=== PATIENT | female | born 1980 | race American Indian/Alaskan Native ===

== ENCOUNTER 2017-12-03 06:56 | Emergency (ER) | payer BC, OTHER ==
--- NOTE | 2017-12-03 07:06 | Emergency Department Report ---
ED Neuro Deficit HPI - General Stated Complaint: POSSIBLE STROKE Time Seen by Provider: 12/03/17 06:59 Source: patient, EMS, RN notes reviewed, old records reviewed (no previous record) Mode of arrival: Stretcher Limitations: Physical Limitation - History of Present Illness Initial Comments: 37 year old female with a past medical history hypertension presents to the hospital with stroke symptoms. Patient woke up at 6 AM with weakness. She tried to ambulate to the bathroom and fell. She has left-sided facial droop, left arm, and left leg paralysis. She complains of right-sided headache. Patient is slightly lethargic but able to follow commands and answer questions. She presents significantly hypertensive. Patient has had hypertension for several years but has been noncompliant with medications. In preparation for dental abscess surgery she was placed on lisinopril me 5 days ago with last dose last night. - Related Data Allergies/Adverse Reactions: Allergies Allergy/AdvReac Type Severity Reaction Status Date / Time No Known Allergies Allergy Verified 12/03/17 07:16 ED Review of Systems ROS: Stated complaint: POSSIBLE STROKE Other details as noted in HPI Comment: Unobtainable due to pts medical conditions (limited due to decreased MS) Other: Constitutional: No fevers chills Neck: Denies pain Respiratory: Denies cough wheezing shortness of breath Cardiovascular: Denies chest pain GI: Denies abdominal pain, nausea, vomiting : Denies dysuria Musculoskeletal: Denies back pain Skin: Denies rash Neurologic: As per HPI ED Neuro Physical Exam - General Suspected Stroke: Yes - NIHSS Assessment Interval: Baseline 1a. Level of Consciousness: not alert, arousable 1b. LOC Questions: answers correctly 1c. LOC Commands: performs tasks correctly 2. Best Gaze: normal 3. Visual: no visual loss 4. Facial Palsy: complete paralysis (left) 5b. Motor Arm Right: no drift 5a. Motor Arm Left: no movement 6a. Motor Leg Left: no movement 6b. Motor Leg Right: no drift 7. Limb Ataxia: absent 8. Sensory: normal 9. Best Language: no aphasia 10. Dysarthria: normal 11. Extinction/Inattention: no abnormality Total Score: 12 Stroke Severity: Moderate Stroke - Other Other exam information: General: lethargic Head exam: Atraumatic, normocephalic Eyes exam: Normal appearance, pupils equal reactive to light, extraocular movements intact ENT: Moist mucous membrane, normal oropharynx Neck exam: Normal inspection, full range of motion, no meningismus nontender Respiratory exam: Clear to auscultation bilateral, no wheezes, rales, crackles Cardiovascular: Normal rate and rhythm, normal heart sounds Abdomen: Soft, nondistended, and nontender, with normal bowel sounds, no rebound, or guarding Extremity: Full range of motion normal inspection no deformity Back: Normal Inspection, full range of motion, no tenderness Neurologic: lethargic oriented x3,. see NIHSS. GCS E3, V5, M6 = 14 Psychiatric: normal affect, normal mood Skin: Warm, dry, intact ED Course Vital Signs 12/03/17 12/03/17 12/03/17 07:02 07:14 07:15 Temperature 97.6 F Pulse Rate 71 71 75 Respiratory 22 19 Rate Blood Pressure 203/129 Blood Pressure 203/129 [Left] O2 Sat by Pulse 99 100 100 Oximetry 12/03/17 12/03/17 12/03/17 07:30 07:45 08:00 Temperature Pulse Rate 76 114 H 112 H Respiratory 20 22 19 Rate Blood Pressure 234/143 198/125 213/146 Blood Pressure [Left] O2 Sat by Pulse 100 100 100 Oximetry 12/03/17 12/03/17 12/03/17 08:05 08:11 08:15 Temperature Pulse Rate 109 H 120 H 145 H Respiratory 22 23 28 H Rate Blood Pressure 204/141 204/141 204/141 Blood Pressure [Left] O2 Sat by Pulse 100 99 99 Oximetry 12/03/17 12/03/17 12/03/17 08:20 08:25 08:30 Temperature Pulse Rate 156 H 137 H 140 H Respiratory 22 23 24 Rate Blood Pressure 211/158 211/158 212/130 Blood Pressure [Left] O2 Sat by Pulse 97 99 96 Oximetry 12/03/17 08:35 Temperature Pulse Rate 141 H Respiratory 26 H Rate Blood Pressure 186/121 Blood Pressure [Left] O2 Sat by Pulse 97 Oximetry - Reevaluation(s) Reevaluation #1: 12/03/17 07:[address] and after review his CT results patient was prepped for intubation for airway stabilization. Patient was informed of her CAT scan results and need for intubation. Patient's boyfriend was present in the ED and was brought to the bedside to speak to the patient prior to intubation. - Consultations Consultation #1: 12/03/17 07:12 Case discussed with telemetry neurologist Dr. Laureano. Patient over in CAT scan now. Consultation #2: 12/03/17 07:48 Call Placed to [place] transfer service. Awaiting neurosurgeon and hopper filler call back 12/03/17 07:57 case d/w Neurosurgeon Dr Gonzalez and hopper filler Dr Arredondo pt accepted. Rec keppra 1 g, manitol 1g/kg load, agree with goal sbp of 150 - Intubation Time Out Performed: Yes Sedative: Etomidate Mg Given: 20 Paralytic: Rocuronium Mg Given: 100 Laryngoscope: Yaima Size: 3 ET Tube Size: 7.5 Other Airway Intervention: pretreament with lidocaine 100mg prior to intubation Tube Secured Depth (cm): 22 Tube Secured Location: lips Tube Placement Confirmation: visualized tube passing t, equal breath sounds bilat, no breath sounds over epi, confirmation by capnometr Patient Tolerated Procedure: well Intubation Complications: none - Lab Data Result diagrams: 12/03/17 07:00 12/03/17 07:00 Lab Results 12/03/17 12/03/17 12/03/17 Range/Units 07:00 07:00 07:00 WBC 6.1 (4.5-11.0) K/mm3 RBC 5.11 H (3.65-5.03) M/mm3 Hgb 15.0 H (10.1-14.3) gm/dl Hct 43.8 H (30.3-42.9) % MCV 86 (79-97) fl MCH 29 (28-32) pg MCHC 34 (30-34) % RDW 12.8 L (13.2-15.2) % Plt Count 210 (140-440) K/mm3 Lymph % (Auto) 44.9 H (13.4-35.0) % Canyon % (Auto) 8.3 H (0.0-7.3) % Eos % (Auto) 3.2 (0.0-4.3) % Baso % (Auto) 0.7 (0.0-1.8) % Lymph # 2.7 (1.2-5.4) K/mm3 Canyon # 0.5 (0.0-0.8) K/mm3 Eos # 0.2 (0.0-0.4) K/mm3 Baso # 0.0 (0.0-0.1) K/mm3 Seg Neutrophils % 42.9 (40.0-70.0) % Seg Neutrophils # 2.6 (1.8-7.7) K/mm3 PT 12.3 (12.2-14.9) Sec. INR 0.87 (0.87-1.13) APTT 22.8 L (24.2-36.6) Sec. Thrombin Time 16.4 (15.1-19.6) Sec. Sodium (137-145) mmol/L Potassium (3.6-5.0) mmol/L Chloride (98-107) mmol/L Carbon Dioxide (22-30) mmol/L Anion Gap mmol/L BUN (7-17) mg/dL Creatinine (0.7-1.2) mg/dL Estimated GFR ml/min BUN/Creatinine Ratio % Glucose (65-100) mg/dL POC Glucose (70-105) Calcium (8.4-10.2) mg/dL Magnesium (1.7-2.3) mg/dL Total Creatine Kinase 109 (30-135) units/L CK-MB (CK-2) 1.8 (0.0-4.0) ng/mL CK-MB (CK-2) Rel Index 1.6 (0-4) Troponin T < 0.010 (0.00-0.029) ng/mL HCG, Quant (0-4) mIU/mL Blood Type Antibody Screen 12/03/17 12/03/17 12/03/17 Range/Units 07:00 07:00 07:00 WBC (4.5-11.0) K/mm3 RBC (3.65-5.03) M/mm3 Hgb (10.1-14.3) gm/dl Hct (30.3-42.9) % MCV (79-97) fl MCH (28-32) pg MCHC (30-34) % RDW (13.2-15.2) % Plt Count (140-440) K/mm3 Lymph % (Auto) (13.4-35.0) % Canyon % (Auto) (0.0-7.3) % Eos % (Auto) (0.0-4.3) % Baso % (Auto) (0.0-1.8) % Lymph # (1.2-5.4) K/mm3 Canyon # (0.0-0.8) K/mm3 Eos # (0.0-0.4) K/mm3 Baso # (0.0-0.1) K/mm3 Seg Neutrophils % (40.0-70.0) % Seg Neutrophils # (1.8-7.7) K/mm3 PT (12.2-14.9) Sec. INR (0.87-1.13) APTT (24.2-36.6) Sec. Thrombin Time (15.1-19.6) Sec. Sodium 137 (137-145) mmol/L Potassium 3.2 L (3.6-5.0) mmol/L Chloride 97.8 L (98-107) mmol/L Carbon Dioxide 24 (22-30) mmol/L Anion Gap 18 mmol/L BUN 12 (7-17) mg/dL Creatinine 0.8 (0.7-1.2) mg/dL Estimated GFR > 60 ml/min BUN/Creatinine Ratio 15 % Glucose 161 H (65-100) mg/dL POC Glucose (70-105) Calcium 8.7 (8.4-10.2) mg/dL Magnesium (1.7-2.3) mg/dL Total Creatine Kinase (30-135) units/L CK-MB (CK-2) (0.0-4.0) ng/mL CK-MB (CK-2) Rel Index (0-4) Troponin T (0.00-0.029) ng/mL HCG, Quant < 2 (0-4) mIU/mL Blood Type O POSITIVE Antibody Screen Negative 12/03/17 12/03/17 Range/Units 07:24 08:03 WBC (4.5-11.0) K/mm3 RBC (3.65-5.03) M/mm3 Hgb (10.1-14.3) gm/dl Hct (30.3-42.9) % MCV (79-97) fl MCH (28-32) pg MCHC (30-34) % RDW (13.2-15.2) % Plt Count (140-440) K/mm3 Lymph % (Auto) (13.4-35.0) % Canyon % (Auto) (0.0-7.3) % Eos % (Auto) (0.0-4.3) % Baso % (Auto) (0.0-1.8) % Lymph # (1.2-5.4) K/mm3 Canyon # (0.0-0.8) K/mm3 Eos # (0.0-0.4) K/mm3 Baso # (0.0-0.1) K/mm3 Seg Neutrophils % (40.0-70.0) % Seg Neutrophils # (1.8-7.7) K/mm3 PT (12.2-14.9) Sec. INR (0.87-1.13) APTT (24.2-36.6) Sec. Thrombin Time (15.1-19.6) Sec. Sodium (137-145) mmol/L Potassium (3.6-5.0) mmol/L Chloride (98-107) mmol/L Carbon Dioxide (22-30) mmol/L Anion Gap mmol/L BUN (7-17) mg/dL Creatinine (0.7-1.2) mg/dL Estimated GFR ml/min BUN/Creatinine Ratio % Glucose (65-100) mg/dL POC Glucose 133 H (70-105) Calcium (8.4-10.2) mg/dL Magnesium 1.60 L (1.7-2.3) mg/dL Total Creatine Kinase (30-135) units/L CK-MB (CK-2) (0.0-4.0) ng/mL CK-MB (CK-2) Rel Index (0-4) Troponin T (0.00-0.029) ng/mL HCG, Quant (0-4) mIU/mL Blood Type Antibody Screen - EKG Data -: EKG Interpreted by [place] EKG shows normal: sinus rhythm, axis ( qrs -8), QRS complexes (101), ST-T waves (no stemi/t inv) Rate: normal (83) When compared to previous EKG there are: previous EKG unavailable - Radiology Data Radiology results: report reviewed Read by radiologist CT head noncontrast: Right temporal lobe cerebral hemorrhage 3.4 cm x 4.1 cm. 4.7 mm of right to left subfalcine shift. Chest x-ray: Endotracheal tip is 2.2 cm above hollie. But cremated. No acute abnormality - Medical Decision Making Hypertensive hemorrhage Cardene drip initiated goal 150 systolic blood pressure Keppra orders for seizure prophylaxis Patient intubated (neurointubation) for airway protection and due to depressed mental status Patient also sedated with Ativan drip and fentanyl Case discussed with neurosurgeon and hopper filler at [place] Mannitol given Mild hypokalemia IV potassium 20 meq ordered but unfortunately our pharmacy states that only oral potassium is available Mild hypomagnesemia IV mag 2 gram order Patient to be transferred to [facility] for further treatment. Family informed - Differential Diagnosis hypertensive encephalopathy, ischemic stroke, hemorrhagic stroke, mass Critical Care Time: Yes Critical care time in (mins) excluding proc time.: 35 Critical care attestation.: If time is entered above; I have spent that time in minutes in the direct care of this critically ill patient, excluding procedure time. ED Disposition Clinical Impression: Hemorrhagic stroke, Hemorrhage of right temporal lobe, Endotracheally intubated , Weakness of left side of body, Hypertensive emergency, Hypokalemia, Hypomagnesemia Disposition: DC/TX-70 ANOTHER TYPE HLTHCARE Is pt being admited?: No Condition: Stable Time of Disposition: 08:06 (awaiting transport to [facility])
[2017-12-03 07:15] LABS: Basophils % (Auto) 0.7 % (0.0-1.8); Eosinophils # (Auto) 0.2 K/mm3 (0.0-0.4); Eosinophils % (Auto) 3.2 % (0.0-4.3); Hematocrit 43.8 % (30.3-42.9); Lymphocytes # (Auto) 2.7 K/mm3 (1.2-5.4); Lymphocytes % (Auto) 44.9 % (13.4-35.0); Mean Corpuscular HGB Conc 34 % (30-34); Mean Corpuscular Hemoglobin 29 pg (28-32); Mean Corpuscular Volume 86 fl (79-97); Monocytes # (Auto) 0.5 K/mm3 (0.0-0.8); Monocytes % (Auto) 8.3 % (0.0-7.3); Red Blood Count 5.11 M/mm3 (3.65-5.03); Red Cell Distribution Width 12.8 % (13.2-15.2)
[2017-12-03 07:17] LABS: Platelet Count 210 K/mm3 (140-440)
--- NOTE | 2017-12-03 07:19 | Cat Scan Report ---
FINAL REPORT EXAM: CT HEAD/BRAIN WO CON HISTORY: suspected stroke TECHNIQUE: Routine axial imaging was obtained of the brain without IV contrast. FINDINGS: There is an acute parenchymal hemorrhage in the right temporal lobe measuring 3.4 cm x 4.1 cm. There is approximately 4.7 millimeters of right to left subfalcine shift. The ventricular system is not dilated. There are no extra-axial fluid collections. The visualized sinuses are clear. The mastoid air cells are well pneumatized. IMPRESSION: Acute parenchymal hemorrhage in the right temporal lobe, measuring 3.4 cm x 4.1 cm. There is approximately 4.7 millimeters of right to left subfalcine shift.
[2017-12-03 07:24] LABS: INR 0.87 (0.87-1.13)
[2017-12-03 07:25] LABS: Partial Thromboplastin Time 22.8 Sec. (24.2-36.6); Thrombin Time 16.4 Sec. (15.1-19.6)
[2017-12-03 07:26] LABS: BUN/Creatinine Ratio 15; Blood Urea Nitrogen 12 mg/dL (7-17); Calcium 8.7 mg/dL (8.4-10.2); Hemolysis Index 49
[2017-12-03] MEDS ORDERED: ZEMURON IV ONE ×2 (07:29→07:46)
[2017-12-03] MEDS ORDERED: AMIDATE IV ONE ×2 (07:29→07:46)
[2017-12-03] MEDS ORDERED: XYLOCAINE CARDIAC IV ONE ×2 (07:29→07:46)
[2017-12-03 07:39] LABS: Creatine Kinase MB 1.8 ng/mL (0.0-4.0)
[2017-12-03] MEDS ORDERED: ARTIFICIAL TEARS OPHTH OINT OU PRN (07:40)
[2017-12-03] MEDS ORDERED: VASELINE LIP THERAPY TP PRN (07:40)
[2017-12-03] MEDS ORDERED: OSMITROL 20% IV ONE ×2 (07:55→08:45)
[2017-12-03] MEDS ORDERED: KEPPRA 1,000 MG/NS 0.75% 100ML 1,000 MG/100 ML BAG IV ONE (07:55)
[2017-12-03] MEDS ORDERED: NACL 0.9% 500 ML IV SCH (08:00)
[2017-12-03] MEDS ORDERED: CARDENE 50 MG in NACL 0.9% 250ML 230 ML IV SCH (08:00)
[2017-12-03] MEDS ORDERED: ATIVAN 100 MG in NACL 0.9% 50 ML, VIAFLEX EMPTY CONTAINER 0 ML IV SCH (08:00)
[2017-12-03] MEDS ORDERED: fentaNYL DRIP Premix 2,000 MCG/100 ML BAG IV SCH (08:00)
[2017-12-03] MEDS ORDERED: MAGNESIUM SULFATE 2GM/50ML 2 GM/50 ML BAG IV ONE (08:14)
--- NOTE | 2017-12-03 08:23 | XRay Report ---
FINAL REPORT EXAM: XR CHEST 1V AP HISTORY: ETT placement TECHNIQUE: Chest, portable supine findings the endotracheal tube tip PRIORS: None. FINDINGS: The endotracheal tube tip is 2.2 cm above the hollie. There is borderline cardiomegaly. Minimal pulmonary vascular prominence in the upper lobes likely reflects patient's supine position. Its there is no infiltrate, pleural effusion or pneumothorax seen. IMPRESSION: Endotracheal tube tip is 2.2 cm above hollie. Borderline cardiomegaly. No acute abnormality otherwise seen.
[2017-12-03 08:44] VITALS: BP 186/121
[2017-12-03] MEDS: KCL 10MEQ/100ML 10 MEQ/100 ML BAG IV SCH (09:27)
[2017-12-03] MEDS ORDERED: KCL 20 MEQ in NACL 0.9% 250ML 250 ML IV ONE (09:30)
[2017-12-03 09:31] LABS: Amphetamine Screen,Urine PRESUMPTIVE NEGATIVE; Benzodiazepines Screen,Urine PRESUMPTIVE NEGATIVE; Cannabinoid Screen,Urine PRESUMPTIVE NEGATIVE; Cocaine Screen,Urine PRESUMPTIVE NEGATIVE; Methadone Screen,Urine PRESUMPTIVE NEGATIVE; Opiate Screen,Urine PRESUMPTIVE NEGATIVE
== END 2017-12-03 09:30 | disposition other institution (70) ==
LOC: ED 06:56
DX: I62.9 Nontraumatic intracranial hemorrhage, unspecified (principal); E87.6 Hypokalemia; E83.42 Hypomagnesemia; R53.1 Weakness
CPT/HCPCS: 31500; 36415; 51702; 70450; 71045; 80048; 80307; 82550; 82553; 82962; 83735; 84484; 84702; 85025; 85610; 85670; 85730; 86850; 86900; 86901; 93005; 93010; 96365; 96368; 96375; 99291; J1953; J2001; J2060; J2150; J7050; 94002; J3010; J3480